=== PATIENT | male | born 1950 | race Caucasian/White ===

== ENCOUNTER 2019-04-09 15:12 | Emergency (ER) | payer OTHER ==
[~2019-04-09] VITALS: Ht 170.2 cm; Wt 81.7 kg
[2019-04-09 16:59] LABS: ABSOLUTE NEUTROPHILS 5.1 thou/uL (1.4-8.2); BASOPHILS 0.4 % (0.0-2.0); EOSINOPHILS 2.7 % (0.0-3.0); HEMATOCRIT 45.3 % (42.0-52.0); HEMOGLOBIN 15.5 gm/dL (14.0-18.0); LYMPHOCYTES 17.3 % (24.0-44.0); MCH 32.6 pg (26.0-34.0); MCHC 34.2 g/dL (28.0-37.0); MCV 95.2 fL (80.0-100.0); MONOCYTES 9.5 % (1.0-8.0); PLATELET COUNT 171 thou/uL (150-400); POLYS 70.1 % (36.0-66.0); RBC 4.76 mil/uL (4.50-6.00); RDW 13.7 % (10.5-14.5); WBC 7.3 thou/uL (4.0-11.0)
[2019-04-09 16:59] LABS: URINE BILIRUBIN NEGATIVE (Negative); URINE BLOOD 3+ (Negative); URINE CLARITY CLEAR; URINE COLOR YELLOW; URINE GLUCOSE-RANDOM* NEGATIVE (Negative); URINE KETONES NEGATIVE (Negative); URINE LEUKOCYTES-REFLEX NEGATIVE (Negative); URINE NITRITE-REFLEX NEGATIVE (Negative); URINE PROTEIN (DIPSTICK) NEGATIVE (Negative); URINE UROBILINOGEN 0.2 E.U./dl (0.2-1.0)
[2019-04-09 17:10] LABS: AMP/METHAMP Negative (Negative); BARBITURATES Negative (Negative); BENZODIAZEPINES Negative (Negative); COCAINE Negative (Negative); METHADONE Negative (Negative); OPIATES POSITIVE (Negative); PCP Negative (Negative)
[2019-04-09 17:11] LABS: ANION GAP 6 mmol/L (7-16); BUN 10 mg/dL (7-18); CHLORIDE 100 mmol/L (98-107); CO2 28 mmol/L (21-32); CREATININE 0.9 mg/dL (0.7-1.3); GLUCOSE 130 mg/dL (74-106); POTASSIUM 3.8 mmol/L (3.5-5.1); SODIUM 134 mmol/L (136-145)
[2019-04-09 17:12] LABS: BACTERIA-REFLEX 1-9 Few /HPF (None Seen); CASTS None Seen /LPF (None Seen); CRYSTALS None Seen /LPF (None Seen); SQUAMOUS 0-3 Few /LPF (0-3); URINE RBC 3-10 Few /HPF (0-2); URINE WBC-REFLEX 0-5 Rare /HPF (0-5)
[2019-04-09 17:21] LABS: LIPASE 76 U/L (73-393); SGOT 14 U/L (15-37); SGPT 27 U/L (30-65); TOTAL BILIRUBIN 0.4 mg/dL (<0.1-1.0); TOTAL PROTEIN 7.4 g/dL (6.4-8.2); TROPONIN-I <0.06 ng/mL (<0.06)
--- NOTE | 2019-04-09 17:27 | EKG ---
[address] [place] [address] ELECTROCARDIOGRAM REPORT Name: DEV MALDONADO Room #: REG BIB Dailey#: [id number] Admission: 04/09/19 Attend Phys: Discharge: Date of : 54 Report #: [id number] THIS REPORT FOR: //name// [facility] ED Test Date: 2019-04-09 Test Time: 15:22:54 Pat Name: DEV MALDONADO Department: Room: Gender: Science Faculty Member: ИВАН : 1950 Requested By: Eduin Tran Order Number: [id number] MD: Jose Carrasco Measurements Intervals [place] Rate: 104 P: 62 NE: 161 QRS: 60 QRSD: 91 T: 64 QT: 342 QTc: 450 Interpretive Statements Sinus tachycardia Nonspecific ST segment abnormality No previous ECG available for comparison Electronically Signed On 04-09-2019 17:27:17 CDT by Jose Carrasco [email or web address] <ELECTRONICALLY SIGNED> By: Jose Carrasco MD, [facility] 04/09/19 1727 1522 1522 Jose Carrasco MD, FACC /EPI
[2019-04-09] MEDS ORDERED: PRILOSEC OTC20 MG PO (18:24)
[2019-04-09] MEDS ORDERED: TRAMADOL 50 MG50 MG PO (18:24)
[2019-04-09] MEDS ORDERED: LEVSIN0.125 MG PO (18:24)
[2019-04-09 18:33] VITALS: BP 156/56
--- NOTE | 2019-04-10 17:30 | EKG ---
[address] [place] [address] ELECTROCARDIOGRAM REPORT Name: SHANNON MALDONADOALL Room #: [facility] BIB Dailey#: [id number] Admission: 04/09/19 Attend Phys: Discharge: 04/09/19 Date of : 54 Report #: [id number] THIS REPORT FOR: //name// [facility] ED Test Date: 2019-04-09 Test Time: 17:08:26 Pat Name: DEV MALDONADO Department: Room: Gender: M Account Service Associate: MYNOR : 1950 Requested By: Eduin Tran Order Number: [id number] MD: Jose Carrasco Measurements Intervals [place] Rate: 86 P: 68 [place]: 158 QRS: 58 QRSD: 91 T: 52 QT: 382 QTc: 457 Interpretive Statements Sinus rhythm Normal tracing Electronically Signed On 04-09-2019 17:29:23 CDT by Jose Carrasco Compared to ECG 04/09/2019 15:22:54 Sinus tachycardia no longer present ST (T wave) deviation no longer present Electronically Signed On 04-10-2019 17:29:49 CDT by Jose Carrasco [email or web address] <ELECTRONICALLY SIGNED> By: Jose Carrasco MD, [facility] 04/10/19 1729 1708 1708 Jose Carrasco MD, [facility] /EPI
== END 2019-04-09 18:53 | disposition home or self-care (01) ==
LOC: ER 15:12
PROVIDERS: Emergency Medicine
DX: R10.31 Right lower quadrant pain (principal); R91.1 Solitary pulmonary nodule; F17.210 Nicotine dependence, cigarettes, uncomplicated; Z88.2 Allergy status to sulfonamides